=== PATIENT | female | born 1990 | race Caucasian/White ===

== ENCOUNTER 2016-10-09 08:48 | Emergency (ER) | payer OTHER ==
[~2016-10-09] VITALS: Ht 160 cm; Wt 65.8 kg
--- NOTE | ~2016-10-09 | CT4 ---
[facility] A Service of [facility] & [facility] RADIOLOGY TEXT RESULTS PATIENT: CANDY STOVALL LOCATION: SED : [birth year] UNIT #: [id number] AGE: [address]: Daniel Alcaraz MD SEX: F ORDER DR: [id number] [address] [address] [id number] E MR#: [id number] Acc #: [id number] NAME: CANDY STOVALL : 1990 SEX: F STUDY DATE/TIME: 10/09/2016 10:27 UNIT: SED ROOM: STUDY DESCRIPTION: CT Abd and Pelv Wo Cont Attending Physician: Daniel Alcaraz M.D. Ordering Physician: [id number] Kenny Alcaraz Primary Care Physician: Casey Reyes M.D. MEDICAL IMAGING REPORT This report is preliminary unless electronic signature is present. EXAM CT abdomen and pelvis 10/09 INDICATIONS Lower abdominal pain for 1 week, worse this morning. Vaginal bleeding for 1.5 weeks. TECHNIQUE Axial images were obtained through the abdomen and pelvis without contrast. Multiplanar reformats were obtained. No comparison. This CT exam was performed with one or more of the following radiation dose reduction techniques: automatic exposure control, adjustment of mA and/or kV according to patient size, and iterative reconstruction. Use dose reduction statement. FINDINGS Abdomen: The lung bases are clear. Gallbladder is normal. There is no biliary obstruction. No renal or ureteral stones are seen. There is no hydronephrosis. The unenhanced solid organs are normal. The unopacified GI tract is normal. No free fluid is seen. Pelvis: Images through the pelvis are degraded by motion. However, the appendix does appear to be normal despite the motion. The remainder of the unopacified GI tract is within normal limits as well. Urinary bladder is normal. No lower ureteral stones are seen. Solid pelvic organs are unremarkable. IMPRESSION 1. No acute findings in the abdomen or pelvis 2. No renal or ureteral stones. No hydronephrosis. 3. Motion degraded images through the pelvis. However, the appendix does appear normal, as does the remainder of the unopacified GI tract. STS. [facility] A Service of [facility] & [facility] RADIOLOGY TEXT RESULTS PATIENT: CANDY STOVALL LOCATION: SED : [birth year] UNIT #: [id number] AGE: [address]: Daniel Alcaraz MD SEX: F ORDER DR: Dictated by... Nicolás Brown Jr., M.D. THIS IS AN ELECTRONICALLY VERIFIED REPORT Nicolás Brown Jr., M.D. at 10/09/2016 4:39 PM CAMILO/bere TD: 10/09/2016 12:26 JOB #: [id number] MEDICAL IMAGING REPORT Page 1 of 1
[~2016-10-09 08:48] MED LIST: IBUPROFEN800 MG PO; PRILOSEC20 M1 PO
[2016-10-09] MEDS ORDERED: DULOXETINE HCL60 M1 (08:59)
[2016-10-09] MEDS ORDERED: BCP (08:59)
[2016-10-09 09:37] LABS: BASOPHIL% 0.3 % (0-2.5); EOSINOPHIL% 0.7 % (0.0-7.0); HEMOGLOBIN 13.5 gm/dL (12.0-16.0); LYMPHOCYTE# 1.4 X10e3 (1.0-3.5); LYMPHOCYTE% 22.5 % (17.0-45.0); MEAN CELL VOLUME 79.3 FL (83-96); MEAN CORPUSCULAR HEMOGLOBIN 26.8 PG (28-34); MEAN CORPUSCULAR HGB CONC 33.9 g/dL (30-36); MEAN PLATELET VOLUME 8.5 FL (6.5-11.5); MONOCYTE# 0.4 X10e3 (0-1.0); MONOCYTE% 5.8 % (3.0-12.0); NEUTROPHIL# 4.3 X10e3 (1.5-7.1); NEUTROPHIL% 70.7 % (40-75); PLATELET COUNT 261 X10e3 (140-420); RED BLOOD COUNT 5.04 X10e (3.90-5.30); WHITE BLOOD COUNT 6.1 X10e3 (4.0-10.5)
[2016-10-09 09:46] LABS: DIFF IND NO
[2016-10-09 10:02] LABS: BILIRUBIN, DIRECT 0.1 mg/dL (0.0-0.2); BILIRUBIN,INDIRECT 0.3 mg/dL (0.0-0.9); BILIRUBIN,TOTAL 0.4 mg/dL (0.2-2.0); BUN/CREATININE RATIO 16.25; CREATININE SERUM 0.8 mg/dL (0.6-1.4); GLOM FILT RATE Estimated 103.3 mL/min (>60); POTASSIUM 4.3 mmol/L (3.5-5.1); PROTEIN TOTAL SERUM 7.9 g/dL (6.0-8.3)
== END 2016-10-09 11:36 | disposition home or self-care (01) ==
LOC: SED 08:48
PROVIDERS: Emergency Medicine
DX: R10.31 Right lower quadrant pain (principal)
CPT/HCPCS: 36415; 74176; 80048; 80076; 82150; 83690; 84703; 85025; 99284